=== PATIENT | female | born 1950 | race Caucasian/White ===

== ENCOUNTER 2017-07-03 19:20 | Emergency (ER) | payer MEDICARE ==
[~2017-07-03] VITALS: Ht 154.9 cm; Wt 43.5 kg
[~2017-07-03 19:20] MED LIST: ATROVENT 0.02%2.5 ML INH; FLUCONAZOLE200 MG PO; LEVAQUIN500 MG PO; LEVOTHYROXINE50 MCG PO; NEXIUM40 MG PO; PILOCARPINE HCL PEG; PROTONIX PO; PROVENTIL 0.083%3 ML INH; VICODIN ES TAB1 EACH PEG; XANAX PO; Z PILOCARPINE HCL PEG; Z.0.FLAGYL250 MG PEG; Z.0.LEVAQUIN500 MG PEG; Z.0.PROTONIX40 MG PEG; Z.0.XANAX0.25 MG PEG; Z.0.ZOLOFT50 MG PEG; ZOFRAN ODT4 MG PO; ZOLOFT PO
[2017-07-03 21:07] LABS: BILIRUBIN,URINE NEGATIVE (NEGATIVE); CLARITY,URINE CLEAR (CLEAR); COLOR,URINE YELLOW (YELLOW); KETONES,URINE 1+ (NEGATIVE); LEUKOCYTE ESTERASE ,URINE NEGATIVE (NEGATIVE); NITRITE,URINE NEGATIVE (NEGATIVE); PROTEIN,URINE DIPSTICK NEGATIVE (NEGATIVE); URINE UROBILINOGEN 0.2 mg/dL (0.2 - 1)
[2017-07-03 21:21] LABS: WBC,URINE (MAN) 0-5 /HPF (0-5)
[2017-07-03 21:22] LABS: BACTERIA,URINE FEW /HPF; EPITHELIAL CELLS,URINE FEW /LPF; MUCUS,URINE FEW (RARE)
== END 2017-07-03 21:39 | disposition left against medical advice (07) ==
LOC: ER 19:20
DX: R10.9 Unspecified abdominal pain (principal)
CPT/HCPCS: 81001

== ENCOUNTER 2017-07-20 14:11 | Inpatient (IN) | payer MEDICARE ==
[~2017-07-20] VITALS: Ht 149.9 cm; Wt 47.8 kg
[2017-07-20 16:34] LABS: BASOPHILS % 0.6 % (0.0-1.0); EOSINOPHILS % 0.2 % (0.0-6.0); HEMOGLOBIN 10.1 g/dL (12.0-16.0); LYMPHOCYTES # (AUTO) 0.5 (1.0-3.2); LYMPHOCYTES % 11.3 % (18.0-39.1); MEAN CORPUSCULAR HEMOGLOBIN 28.3 pg (28-32); MEAN CORPUSCULAR HGB CONC 31.6 g/dL (31-35); MEAN CORPUSCULAR VOLUME 89.6 fL (81-99); MONOCYTES # (AUTO) 0.2 (0.2-0.8); MONOCYTES % 4.3 % (4.4-11.3); NEUTROPHILS # (AUTO) 3.9 (2.1-6.9); NEUTROPHILS % 83.2 % (38.7-80.0); PLATELET COUNT 336 x10e3/uL (140-360); RED BLOOD COUNT 3.57 x10e6/uL (3.6-5.1); RED CELL DISTRIBUTION WIDTH 16.8 % (11.7-14.4)
[2017-07-20 16:35] LABS: BILIRUBIN,URINE NEGATIVE (NEGATIVE); COLOR,URINE YELLOW (YELLOW); KETONES,URINE NEGATIVE (NEGATIVE); LEUKOCYTE ESTERASE ,URINE NEGATIVE (NEGATIVE); NITRITE,URINE NEGATIVE (NEGATIVE); PROTEIN,URINE DIPSTICK NEGATIVE (NEGATIVE); URINE UROBILINOGEN 0.2 mg/dL (0.2 - 1)
[2017-07-20 16:41] LABS: INR 0.91; PROTHROMBIN TIME 12.7 seconds (11.9-14.5)
[2017-07-20 16:42] LABS: CLARITY,URINE SL CLOUDY (CLEAR)
[2017-07-20 16:51] LABS: ALANINE AMINOTRANSFERASE 7 IU/L (0-55); ALBUMIN 3.3 g/dL (3.5-5.0); ALBUMIN/GLOBULIN RATIO 0.8 (0.8-2.0); ALKALINE PHOSPHATASE 77 IU/L (40-150); ANION GAP 15.5 mmol/L (8-16); BLOOD UREA NITROGEN 11 mg/dL (7-26); BUN/CREATININE RATIO 18 (6-25); CALCIUM 9.7 mg/dL (8.4-10.2); CARBON DIOXIDE 29 mmol/L (22-29); CHLORIDE 91 mmol/L (98-107); CREATINE KINASE 24 IU/L (29-168); CREATININE, SERUM 0.62 mg/dL (0.57-1.11); EST GLOMERULAR FILTRATION RATE > 60 ML/MIN (60-); GLUCOSE 110 mg/dL (74-118); POTASSIUM 4.5 mmol/L (3.5-5.1); SODIUM 131 mmol/L (136-145)
[2017-07-20 16:56] LABS: BACTERIA,URINE FEW /HPF
[2017-07-20 16:58] LABS: B-TYPE NATRIURETIC PEPTIDE2 26.6 pg/mL (0-100)
--- NOTE | 2017-07-20 18:04 | Diagnostic Imaging Report ---
PROCEDURE: CT ABDOMEN AND PELVIS WITHOUT CONTRAST TECHNIQUE: The abdomen and pelvis were scanned utilizing a multidetector helical scanner from the diaphragm to the lesser trochanter after the oral administration of Redicat. No IV contrast was administered due to history of iodine allergy. Coronal and sagittal multiplanar reformations were obtained. COMPARISON: [facility], CT, CT ABDOMEN/PELVIS WO, 10/16/2013, 0:33. INDICATIONS: ABDOMINAL CANCER, PAIN FINDINGS: ABSENCE OF INTRAVENOUS CONTRAST DECREASES SENSITIVITY FOR DETECTION OF FOCAL LESIONS AND VASCULAR PATHOLOGY. LOWER THORAX: Lung bases are clear. HEPATOBILIARY: Mild contour abnormality/nodularity of the anterior hepatic surface (series 2 image 14). No focal hepatic lesions. No biliary ductal dilatation. Gallbladder is unremarkable. SPLEEN: No splenomegaly. PANCREAS: No focal masses or ductal dilatation. Atrophic pancreas ADRENALS: No adrenal nodules. KIDNEYS/URETERS: No hydronephrosis, stones, or contour abnormalities. Stable 2.0 cm fluid density simple cyst in the mid to inferior posterior left kidney (series 2, image 27). PELVIC ORGANS/BLADDER: Bladder is moderately distended. No wall thickening, or focal lesions. Uterus is not visualized. No adnexal masses. PERITONEUM / RETROPERITONEUM: Interval development of moderate to large amount of ascites. No free air. LYMPH NODES: No lymphadenopathy. VESSELS: Moderate atherosclerotic calcification of the abdominal aorta GI TRACT: Gastrostomy tube in place. No bowel dilation or evidence of obstruction. Moderate amount of retained stool in the colon. Descending and sigmoid colon diverticulosis, without diverticulitis. BONES AND SOFT TISSUES: Generalized osteopenia. No aggressive lytic lesions. Degenerative disc changes, worse at L5-S1, with grade 1-2 anterolisthesis of L5 on S1 secondary to bilateral pars interarticularis defects. IMPRESSION: 1. interval development of moderate to large ascites. 2. Mild contour abnormality/nodularity of the anterior hepatic surface. Given the interval development of ascites, this may represent peritoneal metastatic disease. 3. Moderate amount of retained stool in the colon suggesting constipation. Jeremiah Briggs M.D. Dictated by: Jeremiah Briggs M.D. on 07/20/2017 at 18:13 Electronically approved by: Jeremiah Briggs M.D. on 07/20/2017 at 18:13
[2017-07-20] MEDS ORDERED: ONDANSETRON HCL INJ 2 MG/ML VIAL IV STA (18:56)
[2017-07-20] MEDS: FENTANYL 25 MCG/HR PATCH TOP SCH (18:58)
[2017-07-20] MEDS ORDERED: HYDROMORPHONE 2MG/ML INJ IV ONE (19:00)
[2017-07-20] MEDS: LEVOFLOXACIN 500MG/D5W 100ML 100 ML IV SCH (19:20)
--- NOTE | 2017-07-20 19:27 | Diagnostic Imaging Report ---
EXAMINATION: CHEST SINGLE (PORTABLE) INDICATION: \S\ABD PAIN \S\[id number] \S\184 COMPARISON: None FINDINGS: AP view TUBES and LINES: Right sided chest port with tip overlying the cavoatrial junction LUNGS: Lungs are well inflated. Lungs are clear. Right lower lobe calcified granuloma. There is no evidence of pneumonia or pulmonary edema. PLEURA: No pleural effusion or pneumothorax. HEART AND MEDIASTINUM: The cardiomediastinal silhouette is unremarkable.. BONES AND SOFT TISSUES: No acute osseous lesion. 5 mm metallic density overlying the left upper hemithorax of uncertain location may be external to the patient. UPPER ABDOMEN: No free air under the diaphragm. IMPRESSION: No acute thoracic abnormality. Metallic density overlying the left upper hemithorax may be external to the patient. If no correlation with physical exam, then consider lateral view for better localization. Signed by: Dr. Annamarie Malhotra M.D. on 07/20/2017 7:23 PM
[2017-07-20] MEDS ORDERED: HYDROMORPHONE 1MG/1ML INJ IV PRN (19:30)
--- OUTSIDE RECORDS SUMMARY | 2017-07-20 19:46 | XMS REPORT ---
Author [facility] Address Unknown Phone Unavailable Care Team Providers Care Retirement Actuary Name Role Phone FRANKLIN COLLINS Unavailable Unavailable Problems This patient has no known problems. Allergies, Adverse Reactions, Alerts This patient has no known allergies or adverse reactions. Medications This patient has no known medications. Results Test Description Test Time Test Comments Text Results Atomic Results Result Comments CHEST SINGLE (PORTABLE) [place] [address] Patient Name: ROSALINDA MAO MR #: [id number] : 1950 Age/Sex: 67/F Req #: [id number] Adm Physician: Ordered by: FRANKLIN COLLINS MD Report #: [id number] Location: ER Room/Bed: Procedure: [id number] DX/CHEST SINGLE (PORTABLE) Exam Date: 07/20/17 Exam Time: 1840 REPORT STATUS: Signed EXAMINATION: CHEST SINGLE (PORTABLE) INDICATION: COMPARISON: None FINDINGS: AP view TUBES and LINES: Right sided chest port with tip overlying the cavoatrial junction LUNGS: Lungs are well inflated. Lungs are clear. Right lower lobe calcified granuloma. There is no evidence of pneumonia or pulmonary edema. PLEURA: No pleural effusion or pneumothorax. HEART AND MEDIASTINUM: The cardiomediastinal silhouette is unremarkable.. BONES AND SOFT TISSUES: No acute osseous lesion. 5 mm metallic density overlying the left upper hemithorax of uncertain location may be external to the patient. UPPER ABDOMEN: No free air under the diaphragm. IMPRESSION: No acute thoracic abnormality. Metallic density overlying the left upper hemithorax may be external to the patient. If no correlation with physical exam, then consider lateral view for better localization. Signed by: Dr. Carlito Goodrich M.D. on 07/20/2017 7 :23 PM Dictated By: CARLITO GOODRICH MD 22 Transcribed By: HUMBERTO on 1922 COPY TO: FRANKLIN COLLINS MD CT ABDOMEN/PELVIS WO [place] [address] Patient Name: ROSALINDA MAO MR #: [id number] : 1950 Age/Sex: 67/F Req #: [id number] Adm Physician: Ordered by: FRANKLIN COLLINS MD Report #: [id number] Location: ER Room/Bed: Procedure: [id number] CT/CT ABDOMEN/PELVIS WO Exam Date: 07/20/17 Exam Time: 1715 REPORT STATUS: Signed PROCEDURE: CT ABDOMEN AND PELVIS WITHOUT CONTRAST TECHNIQUE: The abdomen and pelvis were scanned utilizing a multidetector helical scanner from the diaphragm to the lesser trochanter after the oral administration of Redicat. No IV contrast was administered due to history of iodine allergy. Coronal and sagittal multiplanar reformations were obtained. COMPARISON: [facility], CT, CT ABDOMEN/PELVIS WO, 10/16/2013, 0:33. INDICATIONS: ABDOMINAL CANCER, PAIN FINDINGS: ABSENCE OF INTRAVENOUS CONTRAST DECREASES SENSITIVITY FOR DETECTION OF FOCAL LESIONS AND VASCULAR PATHOLOGY. LOWER THORAX: Lung bases are clear. HEPATOBILIARY: Mild contour abnormality/nodularity of the anterior hepatic surface (series 2 image 14). No focal hepatic lesions. No biliary ductal dilatation. Gallbladder is unremarkable. SPLEEN: No splenomegaly. PANCREAS: No focal masses or ductal dilatation. Atrophic pancreas ADRENALS: No adrenal nodules. KIDNEYS/URETERS: No hydronephrosis, stones, or contour abnormalities. Stable 2.0 cm fluid density simple cyst in the mid to inferior posterior left kidney (series 2, image 27). PELVIC ORGANS/ BLADDER: Bladder is moderately distended. No wall thickening, or focal lesions. Uterus is not visualized. No adnexal masses. PERITONEUM / RETROPERITONEUM: Interval development of moderate to large amount of ascites. No free air. LYMPH NODES: No lymphadenopathy. VESSELS: Moderate atherosclerotic calcification of the abdominal aorta GI TRACT: Gastrostomy tube in place. No bowel dilation or evidence of obstruction. Moderate amount of retained stool in the colon. Descending and sigmoid colon diverticulosis, without diverticulitis. BONES AND SOFT TISSUES: Generalized osteopenia. No aggressive lytic lesions. Degenerative disc changes, worse at L5-S1, with grade 1-2 anterolisthesis of L5 on S1 secondary to bilateral pars interarticularis defects. IMPRESSION: 1. interval development of moderate to large ascites. 2. Mild contour abnormality/nodularity of the anterior hepatic surface. Given the interval development of ascites, this may represent peritoneal metastatic disease. 3. Moderate amount of retained stool in the colon suggesting constipation. Lucila Briggs M.D. Dictated by: Lucila Briggs M.D. on at 18:13 Electronically approved by: Lucila Briggs M.D. on 07/20/2017 at 18:13 Dictated By: LUCILA BRIGGS MD 12 Transcribed By: KATE on 07/20/171812 COPY TO: FRANKLIN COLLINS MD
[2017-07-20] MEDS: SODIUM CHLORIDE 0.9% 1000ML 1,000 ML IV SCH (20:24)
[2017-07-20] MEDS: METRONIDAZOLE 500MG/NS 100ML 100 ML IV SCH (20:24)
[2017-07-20 21:45] VITALS: BP 162/71
[2017-07-20] MEDS ORDERED: IPRATROPIU0.2 MG/1 M NEB (23:55)
[2017-07-20] MEDS ORDERED: PROPRANOLOL HCL10 MG PEG (23:55)
[2017-07-20] MEDS ORDERED: VENTOLIN HFA18 GM INH (23:55)
[2017-07-20] MEDS ORDERED: ALPRAZOLAM0.5 MG PEG (23:55)
[2017-07-20] MEDS ORDERED: LEVOTHYROXINE50 MCG PEG (23:55)
[2017-07-20] MEDS ORDERED: PROMETHAZINE HC25 M1 PEG (23:55)
[2017-07-20] MEDS ORDERED: CARAFATE1 GM/10 ML PEG (23:55)
[2017-07-20] MEDS ORDERED: OXCARBAZEPINE300 MG PEG (23:55)
[2017-07-20] MEDS ORDERED: TRAZODONE HCL50 MG PEG (23:55)
[2017-07-20] MEDS ORDERED: MIRTAZAPINE15 MG PEG (23:55)
[2017-07-20] MEDS ORDERED: OXYCODONE HCL20 M1 PEG (23:55)
[2017-07-21] VITALS (7 sets, daily range): BP systolic 107–134; BP diastolic 58–82
[2017-07-21] MEDS: OXCARBAZEPINE 300 MG TAB PEG SCH ×3 (00:14→18:24)
[2017-07-21] MEDS: TRAZODONE HCL 50 MG TAB PEG SCH ×2 (00:14→21:42)
[2017-07-21] MEDS: MIRTAZAPINE 15 MG TAB PEG SCH ×2 (00:14→21:42)
[2017-07-21] MEDS: HYDROMORPHONE 2MG/ML INJ IV PRN ×4 (00:22→20:01)
[2017-07-21 00:50] LABS: CREATINE KINASE 20 IU/L (29-168)
[2017-07-21] MEDS: ALBUTEROL SULFATE HFA 8GM INHALATION AEROSOL INH SCH ×6 (02:00→22:00)
[2017-07-21] MEDS: METRONIDAZOLE 500MG/NS 100ML 100 ML IV SCH ×4 (03:00→21:42)
[2017-07-21] MEDS: LEVOTHYROXINE SODIUM 50 MCG TAB PEG SCH ×2 (05:51→09:00)
[2017-07-21 07:13] LABS: BASOPHILS % 0.8 % (0.0-1.0); EOSINOPHILS % 1.1 % (0.0-6.0); HEMATOCRIT 27.6 % (34.2-44.1); HEMOGLOBIN 8.6 g/dL (12.0-16.0); LYMPHOCYTES # (AUTO) 0.5 (1.0-3.2); LYMPHOCYTES % 19.2 % (18.0-39.1); MEAN CORPUSCULAR HEMOGLOBIN 28.3 pg (28-32); MEAN CORPUSCULAR HGB CONC 31.2 g/dL (31-35); MEAN CORPUSCULAR VOLUME 90.8 fL (81-99); MONOCYTES # (AUTO) 0.2 (0.2-0.8); MONOCYTES % 7.7 % (4.4-11.3); NEUTROPHILS # (AUTO) 1.8 (2.1-6.9); NEUTROPHILS % 70.4 % (38.7-80.0); PLATELET COUNT 295 x10e3/uL (140-360); RED BLOOD COUNT 3.04 x10e6/uL (3.6-5.1)
[2017-07-21 07:42] LABS: ALBUMIN 2.7 g/dL (3.5-5.0); ALBUMIN/GLOBULIN RATIO 0.8 (0.8-2.0); ALKALINE PHOSPHATASE 63 IU/L (40-150); ANION GAP 10.9 mmol/L (8-16); BLOOD UREA NITROGEN 9 mg/dL (7-26); BUN/CREATININE RATIO 16 (6-25); CALCIUM 8.9 mg/dL (8.4-10.2); CARBON DIOXIDE 29 mmol/L (22-29); CHLORIDE 98 mmol/L (98-107); CREATININE, SERUM 0.55 mg/dL (0.57-1.11); EST GLOMERULAR FILTRATION RATE > 60 ML/MIN (60-); GLUCOSE 86 mg/dL (74-118); POTASSIUM 3.9 mmol/L (3.5-5.1); SODIUM 134 mmol/L (136-145)
[2017-07-21] MEDS: IPRATROPIUM BROMIDE 0.02% 2.5 ML NEB NEB SCH ×4 (07:55→23:05)
[2017-07-21 08:18] LABS: ALANINE AMINOTRANSFERASE < 6 IU/L (0-55)
[2017-07-21] MEDS: SODIUM CHLORIDE 0.9% 1000ML 1,000 ML IV SCH ×2 (08:50→19:00)
[2017-07-21 12:30] LABS: CREATINE KINASE 18 IU/L (29-168)
[2017-07-21 12:52] LABS: BODY FLUID COLOR STRAW; BODY FLUID TYPE PERITONEAL
[2017-07-21 13:42] LABS: RBC,BODY FLUID 344 cells/uL
[2017-07-21 13:54] LABS: WBC,BODY FLUID 1 cells/uL
[2017-07-21 13:57] LABS: BODY FLUID APPEARANCE CLOUDY
[2017-07-21] MEDS: ONDANSETRON HCL INJ 2 MG/ML VIAL IV PRN (16:06)
[2017-07-21] MEDS: ALBUTEROL SULF 0.083% NEB SOLN 3 ML NEB INH PRN (19:25)
[2017-07-21] MEDS: LEVOFLOXACIN 500MG/D5W 100ML 100 ML IV SCH (20:01)
[2017-07-21] MEDS ORDERED: ALPRAZOLAM 0.5 MG TAB PEG PRN (20:30)
[2017-07-21] MEDS ORDERED: OXYCODONE HCL 20 MG TAB CR PO PRN (20:30)
[2017-07-21] MEDS: SUCRALFATE 1 GM/10 ML SUSP PEG SCH (21:42)
[2017-07-22] VITALS (7 sets, daily range): BP systolic 122–138; BP diastolic 57–69
[2017-07-22] MEDS: HYDROMORPHONE 2MG/ML INJ IV PRN ×6 (00:35→21:45)
[2017-07-22] MEDS: ALBUTEROL SULFATE HFA 8GM INHALATION AEROSOL INH SCH ×6 (02:35→22:00)
[2017-07-22] MEDS: METRONIDAZOLE 500MG/NS 100ML 100 ML IV SCH ×4 (03:19→21:30)
[2017-07-22] MEDS: ALBUTEROL SULF 0.083% NEB SOLN 3 ML NEB INH PRN ×3 (06:55→19:30)
[2017-07-22] MEDS: IPRATROPIUM BROMIDE 0.02% 2.5 ML NEB NEB SCH ×3 (06:55→19:30)
[2017-07-22] MEDS: LEVOTHYROXINE SODIUM 50 MCG TAB PEG SCH (09:00)
[2017-07-22] MEDS: SUCRALFATE 1 GM/10 ML SUSP PEG SCH ×4 (09:25→21:30)
[2017-07-22] MEDS: OXCARBAZEPINE 300 MG TAB PEG SCH ×2 (09:25→16:52)
[2017-07-22] MEDS: PROPRANOLOL HCL 10 MG TAB PEG SCH ×2 (09:25→16:52)
[2017-07-22 11:36] LABS: BASOPHILS % 0.3 % (0.0-1.0); EOSINOPHILS % 0.6 % (0.0-6.0); LYMPHOCYTES # (AUTO) 0.4 (1.0-3.2); LYMPHOCYTES % 10.3 % (18.0-39.1); MEAN CORPUSCULAR HEMOGLOBIN 28.6 pg (28-32); MEAN CORPUSCULAR HGB CONC 31.6 g/dL (31-35); MEAN CORPUSCULAR VOLUME 90.6 fL (81-99); MONOCYTES # (AUTO) 0.2 (0.2-0.8); MONOCYTES % 6.6 % (4.4-11.3); NEUTROPHILS # (AUTO) 2.9 (2.1-6.9); NEUTROPHILS % 81.9 % (38.7-80.0); PLATELET COUNT 284 x10e3/uL (140-360); RED BLOOD COUNT 2.76 x10e6/uL (3.6-5.1)
[2017-07-22 11:43] LABS: HEMOGLOBIN 7.9 g/dL (12.0-16.0)
[2017-07-22 12:00] LABS: BLOOD UREA NITROGEN 11 mg/dL (7-26); BUN/CREATININE RATIO 22 (6-25); CALCIUM 8.4 mg/dL (8.4-10.2); CARBON DIOXIDE 26 mmol/L (22-29); CHLORIDE 99 mmol/L (98-107); CREATININE, SERUM 0.51 mg/dL (0.57-1.11); EST GLOMERULAR FILTRATION RATE > 60 ML/MIN (60-); GLUCOSE 120 mg/dL (74-118); MAGNESIUM 1.4 MG/DL (1.3-2.1); PHOSPHORUS 3.1 MG/DL (2.3-4.7); SODIUM 133 mmol/L (136-145)
[2017-07-22] MEDS: SODIUM CHLORIDE 0.9% 1000ML 1,000 ML IV SCH (12:09)
[2017-07-22] MEDS ORDERED: MAGNESIUM SULFATE 2GM/50ML 50 ML IV ONE (14:00)
[2017-07-22 15:50] LABS: BASOPHILS % 0.5 % (0.0-1.0); EOSINOPHILS % 0.8 % (0.0-6.0); HEMATOCRIT 29.2 % (34.2-44.1); HEMOGLOBIN 9.1 g/dL (12.0-16.0); LYMPHOCYTES # (AUTO) 0.6 (1.0-3.2); LYMPHOCYTES % 14.3 % (18.0-39.1); MEAN CORPUSCULAR HEMOGLOBIN 28.5 pg (28-32); MEAN CORPUSCULAR HGB CONC 31.2 g/dL (31-35); MEAN CORPUSCULAR VOLUME 91.5 fL (81-99); MONOCYTES # (AUTO) 0.2 (0.2-0.8); MONOCYTES % 5.7 % (4.4-11.3); NEUTROPHILS % 78.4 % (38.7-80.0); PLATELET COUNT 313 x10e3/uL (140-360); RED BLOOD COUNT 3.19 x10e6/uL (3.6-5.1); RED CELL DISTRIBUTION WIDTH 16.8 % (11.7-14.4)
[2017-07-22 15:58] LABS: INR 1.18; PROTHROMBIN TIME 14.1 seconds (11.9-14.5)
[2017-07-22 16:08] LABS: ALBUMIN 2.7 g/dL (3.5-5.0); ALBUMIN/GLOBULIN RATIO 0.8 (0.8-2.0); ALKALINE PHOSPHATASE 57 IU/L (40-150); BLOOD UREA NITROGEN 10 mg/dL (7-26); BUN/CREATININE RATIO 20 (6-25); CALCIUM 8.8 mg/dL (8.4-10.2); CARBON DIOXIDE 25 mmol/L (22-29); CHLORIDE 98 mmol/L (98-107); EST GLOMERULAR FILTRATION RATE > 60 ML/MIN (60-); GLUCOSE 105 mg/dL (74-118); SODIUM 132 mmol/L (136-145)
[2017-07-22 16:09] LABS: ALANINE AMINOTRANSFERASE < 6 IU/L (0-55)
[2017-07-22] MEDS: MAGNESIUM OXIDE 400 MG TAB PO SCH (16:52)
[2017-07-22] MEDS: OXYCODONE HCL IR 5 MG TAB PEG PRN (16:54)
--- NOTE | 2017-07-22 18:29 | History and Physical ---
DATE OF SERVICE: July 21, 2017 HISTORY OF PRESENT ILLNESS: The patient is a 67-year-old female that presented to the emergency department yesterday with complaints of fluid in the stomach that was causing shortness of breath, stating that she needed a paracentesis. The patient had recently been at [facility] 2 weeks ago with similar problems. Per the emergency room record, the patient described her abdominal pain as dull with distension. At that time, her pain level was 8/10. She denied any vomiting or diarrhea. She has had nausea and loss of appetite. Earlier today, the patient underwent a paracentesis in which 2450 mL of fluid was removed, and oncology has been consulted to see the patient. PRIMARY CARE PHYSICIAN: Dr. Thom Moore PAST MEDICAL HISTORY: Includes ovarian cancer, cervical cancer, head cancer, throat cancer, neck cancer, tonsil cancer. The head and neck cancer was in 2010 and the patient had chemo and radiation. At that time, lung and kidneys lesions were noted. She has a history of hypoxemic respiratory failure with intubation, pneumonia, COPD, chronic back pain, osteoarthritis, methadone use, anxiety, hypothyroidism, diverticulitis, diverticulosis. In 2015, she had chemotherapy for ovarian cancer. PAST SURGICAL HISTORY: Paracentesis in June in which 4.5 liters were removed. PEG placement, tubal ligation, history of 3 Csec-O-Qifcu, total abdominal hysterectomy and bilateral salpingo-oophorectomy. PAST FAMILY HISTORY: Mother and father both had hypertension. Her sisters have had hysterectomies. SOCIAL HISTORY: Patient denies any history of alcohol or drugs. She is a lifelong smoker. Currently smoking approximately 1/4 per pack a day. ALLERGIES: TETRACYCLINE, IBUPROFEN, IODINE, PENICILLINS, NSAIDs. HOME MEDICATIONS: Include: 1. Albuterol nebs 3 mL inhalation every 4 hours. 2. Albuterol 18 g HFA, 90 mcg inhalation q.4h. 3. Alprazolam 0.5 mg tablet via PEG t.i.d. p.r.n. for anxiety. 4. Nexium 40 mg p.o. daily. 5. Atrovent 2.5 mL neb q.i.d. 6. Levothyroxine 50 mcg tablet via PEG daily. 7. Mirtazapine 15 mg tablet via PEG nightly. 8. Oxcarbazepine 300 mg tablet via PEG b.i.d. 9. Oxycodone 20 mg tablet, 10 mg via PEG every 6 hours p.r.n. for pain. 10. Promethazine 25 mg tablet via PEG every 6 hours p.r.n. for nausea and vomiting. 11. Propranolol 10 mg tablet via PEG b.i.d. 12. Sucralfate 1 g via PEG q.i.d. 13. Trazodone 50 mg via PEG nightly. REVIEW OF SYSTEMS: GENERAL: The patient denies any chills. She currently does not have any pain. She states she has some headache, which she attributes to her oxygen being dry. She has weakness. Denies fatigue or malaise. HEENT: Denies any visual complaints. Complains of dry nose. CARDIOVASCULAR: Denies chest pain or palpitations or syncope. PULMONARY: She has shortness of breath with dyspnea on exertion as well as cough and clear phlegm. She denies use of oxygen at home. GASTROINTESTINAL: Patient denies nausea, vomiting, diarrhea, constipation, or melena or hematemesis. GENITOURINARY: No complaints of dysuria or pyuria. No urinary frequency. MUSCULOSKELETAL: Patient complains of weakness, but has a history of chronic back pain. ENDOCRINE: Negative for diabetes. HEMATOLOGY: Denies history of bleeding or bruising. INFECTIOUS DISEASE: No known history of HIV or immunodeficiency per the patient, although has an extensive history of cancer. NEUROLOGIC: Denies any focal weakness, numbness, tingling, or seizures. PHYSICAL EXAMINATION: VITAL SIGNS: Temperature 97.4, heart rate 89, blood pressure 133/82, respirations 20, oxygen saturation 97%. Height 4 feet 11 inches. Weight 105 pounds. BMI 21.2. GENERAL: Patient is cachectic, emaciated, supine, in no acute distress. HEENT: Pupils are equal, round, and reactive to light. Extraocular eye movements intact. Oropharynx is clear. Atraumatic, normocephalic. NECK: Supple. No lymphadenopathy, thyromegaly. No obvious JVD. No carotid bruit. CARDIOVASCULAR: Regular rate and rhythm. No murmur. LUNGS: Air entry bilaterally. No wheezing, crackles, or rhonchi noted, but she has diminished in the bases. Currently using oxygen at 2 liters via nasal cannula. Prolonged expiration. ABDOMEN: Bowel sounds positive. Soft, nontender. She has a PEG. Currently has Jevity infusing into the PEG. No hepatosplenomegaly noted. BACK: No costovertebral angle tenderness. EXTREMITIES: No discoloration of the legs noted. No signs or symptoms of DVT or pitting edema. NEUROLOGICAL: GCS of 15, nonfocal. Cranial nerves II through XII are intact. Alert and oriented x4. LABORATORY DATA: Yesterday, WBC is 4.69, hemoglobin 10.1, hematocrit 32.0, platelets 336,000. PT 12.7, INR 0.91, PTT 36. Chemistry: Sodium 131, potassium 4.5, chloride 91, CO2 29, BUN 11, creatinine 0.62, GFR greater than 60, glucose 110. Lactic acid 12.6. Calcium 9.7. Total bilirubin 0.4, AST 16, ALT 7, alkaline phosphatase 77. Creatinine kinase 24. CK-MB 0.80. Troponin I less than 0.001. B-type natriuretic peptide 26.6. Total protein 7.7, albumin 3.3. Urinalysis showed yellow urine, which was negative for leukocyte esterases, urine protein or nitrites. Today, WBC is 2.61, hemoglobin 8.6, hematocrit 27.6, platelets 295,000. Sodium 134, potassium 3.9, chloride 98, CO2 29, BUN 9, creatinine 0.55, GFR greater than 60, glucose 86, calcium 8.9. Total bilirubin 0.3. AST 12, ALT less than 6, alkaline phosphatase 63, total protein 6.2, albumin 2.7. Creatinine kinase 18. CK-MB 0.7. Troponin I less than 0.001. Today, the peritoneal fluid from the paracentesis was sent to lab, straw-colored cloudy, WBC 1, RBC 344, total protein 4.8. Other labs from this are pending. Yesterday, the patient had 2 blood cultures, which have shown no growth after 24 hours. Urine culture has shown no growth after 18 to 24 hours. Gram stain with culture and sensitivity of the peritoneal fluid is pending. Yesterday, an abdomen and pelvis CT was completed, which showed moderate to large ascites, mild contour abnormality, nodularity of the anterior hepatic surface. Given the interval development of ascites, this may represent peritoneal metastatic disease. Moderate amount of retained stool in the colon suggesting constipation. Chest x-ray obtained yesterday showed no acute thoracic abnormality. Twelve-lead EKG completed yesterday showed normal sinus rhythm with a ventricular rate of 79. ASSESSMENT AND PLAN: 1. Ascites secondary to malignancy with history of ovarian cancer in 2016, status post ultrasound-guided paracentesis, July 21, 2017 with 2450 mL of fluid removed. Oncology has been consulted. 2. Abdominal pain. Continue fentanyl patch and Dilaudid. The patient is on Levaquin and Flagyl intravenously. Continue to monitor. 3. Hypoxia/dyspnea on exertion, complicated by ascites. Continue oxygen via nasal cannula. Will ask that oxygen be humidified. 4. Chronic obstructive pulmonary disease, current smoker. DuoNeb, supplemental oxygen, encouraged smoking cessation. 5. Degenerative disk disease, osteopenia, chronic back pain. Pain control as above. 6. History of ovarian, cervical, head, neck, throat, tonsil cancer; and a lifelong smoker. Continue supportive care. Oncology has been consulted. 7. Diverticulosis. Monitor. 8. Cachexia, protein-calorie malnutrition, percutaneous endoscopic gastrostomy status. Continue Remeron as an appetite stimulant. Patient is also receiving tube feeds in the form of Jevity. 9. Patient will receive Protonix for peptic ulcer disease prophylaxis and sequential compression devices for deep venous thrombosis prophylaxis. Dictated by EILEEN Fairbanks Job#: [id number]
[2017-07-22] MEDS: LEVOFLOXACIN 500MG/D5W 100ML 100 ML IV SCH (20:00)
[2017-07-22] MEDS: MIRTAZAPINE 15 MG TAB PEG SCH (21:30)
[2017-07-22] MEDS: TRAZODONE HCL 50 MG TAB PEG SCH (21:30)
[2017-07-23] VITALS: BP 108/59
[2017-07-23] MEDS: ALBUTEROL SULF 0.083% NEB SOLN 3 ML NEB INH PRN ×2 (00:30→20:30)
[2017-07-23] MEDS: IPRATROPIUM BROMIDE 0.02% 2.5 ML NEB NEB SCH ×5 (00:30→21:00)
[2017-07-23] MEDS: ALBUTEROL SULFATE HFA 8GM INHALATION AEROSOL INH SCH ×6 (02:00→22:00)
[2017-07-23] MEDS: HYDROMORPHONE 2MG/ML INJ IV PRN ×5 (02:06→22:07)
[2017-07-23] MEDS: METRONIDAZOLE 500MG/NS 100ML 100 ML IV SCH ×4 (03:22→22:07)
[2017-07-23 04:00] VITALS: BP 119/62
[2017-07-23 06:12] LABS: BASOPHILS % 0.8 % (0.0-1.0); EOSINOPHILS # (AUTO) 0.1 (0.0-0.4); EOSINOPHILS % 2.1 % (0.0-6.0); LYMPHOCYTES # (AUTO) 0.6 (1.0-3.2); LYMPHOCYTES % 26.3 % (18.0-39.1); MEAN CORPUSCULAR HEMOGLOBIN 28.3 pg (28-32); MEAN CORPUSCULAR HGB CONC 30.8 g/dL (31-35); MEAN CORPUSCULAR VOLUME 91.9 fL (81-99); MONOCYTES # (AUTO) 0.2 (0.2-0.8); MONOCYTES % 9.9 % (4.4-11.3); NEUTROPHILS # (AUTO) 1.5 (2.1-6.9); NEUTROPHILS % 60.9 % (38.7-80.0); PLATELET COUNT 263 x10e3/uL (140-360); RED BLOOD COUNT 2.72 x10e6/uL (3.6-5.1); RED CELL DISTRIBUTION WIDTH 16.8 % (11.7-14.4)
[2017-07-23 06:20] LABS: INR 1.35; PROTHROMBIN TIME 15.7 seconds (11.9-14.5)
[2017-07-23 06:21] LABS: PARTIAL THROMBOPLASTIN TIME 40.5 seconds (23.8-35.5)
[2017-07-23 06:28] LABS: ALBUMIN 2.1 g/dL (3.5-5.0); ALBUMIN/GLOBULIN RATIO 0.8 (0.8-2.0); ALKALINE PHOSPHATASE 46 IU/L (40-150); ANION GAP 10.3 mmol/L (8-16); BLOOD UREA NITROGEN 10 mg/dL (7-26); BUN/CREATININE RATIO 19 (6-25); CALCIUM 8.4 mg/dL (8.4-10.2); CARBON DIOXIDE 28 mmol/L (22-29); CHLORIDE 99 mmol/L (98-107); CREATININE, SERUM 0.53 mg/dL (0.57-1.11); EST GLOMERULAR FILTRATION RATE > 60 ML/MIN (60-); GLUCOSE 113 mg/dL (74-118); POTASSIUM 4.3 mmol/L (3.5-5.1); SODIUM 133 mmol/L (136-145)
[2017-07-23 06:29] LABS: HEMOGLOBIN 7.7 g/dL (12.0-16.0)
[2017-07-23] MEDS: LEVOTHYROXINE SODIUM 50 MCG TAB PEG SCH (06:38)
[2017-07-23] MEDS: SODIUM CHLORIDE 0.9% 1000ML 1,000 ML IV SCH ×2 (06:38→14:10)
[2017-07-23 06:39] LABS: ALANINE AMINOTRANSFERASE < 6 IU/L (0-55)
[2017-07-23 07:52] LABS: HEMATOCRIT 27.1 % (34.2-44.1); HEMOGLOBIN 8.3 g/dL (12.0-16.0)
[2017-07-23 08:00] VITALS: BP 137/63
[2017-07-23] MEDS: SUCRALFATE 1 GM/10 ML SUSP PEG SCH ×4 (10:06→21:28)
[2017-07-23] MEDS: PROPRANOLOL HCL 10 MG TAB PEG SCH ×2 (10:06→18:44)
[2017-07-23] MEDS: MAGNESIUM OXIDE 400 MG TAB PO SCH ×2 (10:15→18:29)
[2017-07-23] MEDS: OXCARBAZEPINE 300 MG TAB PEG SCH ×2 (10:15→18:29)
[2017-07-23] MEDS ORDERED: DIPHENHYDRAMINE HCL INJ 50 MG/ML VIAL IV ONE (10:45)
[2017-07-23] MEDS: ONDANSETRON HCL INJ 2 MG/ML VIAL IV PRN ×2 (11:11→15:51)
[2017-07-23 12:00] VITALS: BP 131/63
[2017-07-23] MEDS: OXYCODONE HCL IR 5 MG TAB PEG PRN ×2 (13:06→19:54)
[2017-07-23 16:00] VITALS: BP 110/55
[2017-07-23] MEDS ORDERED: SODIUM CHLORIDE 0.9% 250ML 250 ML IV ONE (16:30)
[2017-07-23] MEDS ORDERED: DIPHENHYDRAMINE HCL INJ 50 MG/ML VIAL IV NR (18:00)
[2017-07-23] MEDS: FENTANYL 25 MCG/HR PATCH TOP SCH (18:17)
--- NOTE | 2017-07-23 19:29 | Consultation ---
DATE OF CONSULTATION: PULMONARY CONSULTATION A charming but unfortunate 67-year-old woman with history of multiple carcinomas. 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 The patient continues to smoke less than 1/2 pack of cigarettes a day. She has had recent paracentesis at [facility]. The results of those fluid analysis unknown at this time. ALLERGIES: TETRACYCLINE, MOTRIN, IODINE, PENICILLIN. 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 HOME MEDICATIONS: Albuterol, Xanax, Nexium, ipratropium, Levoxyl, Remeron, oxcarbazepine, Oxycodone, Phenergan, propranolol, Carafate and trazodone. She takes all medications via her feeding tube. She requests full measures at this time. She does have a dry mouth and is unable to tolerate Biotene. PHYSICAL EXAMINATION GENERAL: A sprightly white female unable to eat except for pureed diet in small amounts. Most of her feedings are by PEG tube. She has a Nicorette inhaler which she uses. She is frail. VITAL SIGNS: Temperature 98.2, pulse 74, respirations 16, blood pressure 131/61. CHEST: Port-A-Cath noted chest wall. LUNGS: Diminished breath sounds but clear. HEART: Regular rhythm. ABDOMEN: Soft. There is a PEG tube in place. She had a paracentesis earlier today. PLAN: Continue bronchodilators. Transfusion has been ordered for the patient. Her hemoglobin has fallen to 7.9, apparently reported by . Thank you for this kind referral. Job#: [id number]
[2017-07-23 20:00] VITALS: BP 169/79
[2017-07-23] MEDS: TRAZODONE HCL 50 MG TAB PEG SCH (21:00)
[2017-07-23] MEDS: MIRTAZAPINE 15 MG TAB PEG SCH (21:27)
[2017-07-23] MEDS ORDERED: HYDROMORPHONE 1MG/1ML INJ IV PRN (21:30)
[2017-07-24] VITALS: BP 166/68
[2017-07-24 00:53] VITALS: BP 166/68
[2017-07-24] MEDS: LEVOFLOXACIN 500MG/D5W 100ML 100 ML IV SCH ×2 (00:54→19:55)
[2017-07-24] MEDS: ALBUTEROL SULFATE HFA 8GM INHALATION AEROSOL INH SCH ×5 (02:00→22:00)
[2017-07-24] MEDS: HYDROMORPHONE 2MG/ML INJ IV PRN ×5 (02:05→20:35)
[2017-07-24] MEDS: SODIUM CHLORIDE 0.9% 1000ML 1,000 ML IV SCH ×2 (03:36→16:52)
[2017-07-24] MEDS: METRONIDAZOLE 500MG/NS 100ML 100 ML IV SCH ×4 (03:36→20:34)
[2017-07-24] MEDS: OXYCODONE HCL IR 5 MG TAB PEG PRN (03:37)
[2017-07-24 04:00] VITALS: BP 158/68
[2017-07-24] MEDS: LEVOTHYROXINE SODIUM 50 MCG TAB PEG SCH (05:39)
[2017-07-24] MEDS: IPRATROPIUM BROMIDE 0.02% 2.5 ML NEB NEB SCH ×4 (07:00→23:45)
[2017-07-24] MEDS: ALBUTEROL SULF 0.083% NEB SOLN 3 ML NEB INH PRN ×4 (07:00→23:45)
[2017-07-24 07:50] VITALS: BP 141/67
[2017-07-24 08:20] LABS: BASOPHILS % 0.7 % (0.0-1.0); EOSINOPHILS # (AUTO) 0.1 (0.0-0.4); EOSINOPHILS % 2.5 % (0.0-6.0); HEMATOCRIT 33.4 % (34.2-44.1); HEMOGLOBIN 10.6 g/dL (12.0-16.0); LYMPHOCYTES # (AUTO) 0.7 (1.0-3.2); LYMPHOCYTES % 22.8 % (18.0-39.1); MEAN CORPUSCULAR HEMOGLOBIN 28.3 pg (28-32); MEAN CORPUSCULAR HGB CONC 31.7 g/dL (31-35); MEAN CORPUSCULAR VOLUME 89.3 fL (81-99); MONOCYTES # (AUTO) 0.3 (0.2-0.8); MONOCYTES % 8.8 % (4.4-11.3); NEUTROPHILS # (AUTO) 1.9 (2.1-6.9); NEUTROPHILS % 64.8 % (38.7-80.0); PLATELET COUNT 290 x10e3/uL (140-360); RED BLOOD COUNT 3.74 x10e6/uL (3.6-5.1)
[2017-07-24] MEDS: MAGNESIUM OXIDE 400 MG TAB PO SCH ×2 (09:20→17:22)
[2017-07-24] MEDS: OXCARBAZEPINE 300 MG TAB PEG SCH ×2 (09:20→17:21)
[2017-07-24] MEDS: PROPRANOLOL HCL 10 MG TAB PEG SCH ×2 (09:21→17:21)
[2017-07-24] MEDS: SUCRALFATE 1 GM/10 ML SUSP PEG SCH ×4 (09:21→20:34)
[2017-07-24] MEDS: ONDANSETRON HCL INJ 2 MG/ML VIAL IV PRN ×2 (15:28→20:35)
[2017-07-24 15:56] VITALS: BP 180/75
[2017-07-24 20:00] VITALS: BP 158/71
[2017-07-24] MEDS: MIRTAZAPINE 15 MG TAB PEG SCH (20:34)
[2017-07-24] MEDS: TRAZODONE HCL 50 MG TAB PEG SCH (20:35)
[2017-07-25] VITALS: BP 177/84
[2017-07-25] MEDS: PROMETHAZINE HCL 25 MG TAB PEG PRN ×2 (00:16→00:49)
[2017-07-25 01:04] VITALS: BP 177/84
[2017-07-25] MEDS: ONDANSETRON HCL INJ 2 MG/ML VIAL IV PRN (01:30)
[2017-07-25] MEDS: HYDROMORPHONE 2MG/ML INJ IV PRN (01:48)
[2017-07-25] MEDS: ALBUTEROL SULFATE HFA 8GM INHALATION AEROSOL INH SCH ×2 (02:00→07:32)
[2017-07-25] MEDS: METRONIDAZOLE 500MG/NS 100ML 100 ML IV SCH ×2 (03:33→08:23)
[2017-07-25 04:00] VITALS: BP 138/68
[2017-07-25] MEDS: LEVOTHYROXINE SODIUM 50 MCG TAB PEG SCH (05:20)
[2017-07-25] MEDS: SODIUM CHLORIDE 0.9% 1000ML 1,000 ML IV SCH (05:20)
[2017-07-25 06:35] LABS: BASOPHILS % 0.6 % (0.0-1.0); EOSINOPHILS % 0.3 % (0.0-6.0); HEMATOCRIT 30.2 % (34.2-44.1); HEMOGLOBIN 9.8 g/dL (12.0-16.0); LYMPHOCYTES # (AUTO) 0.5 (1.0-3.2); MEAN CORPUSCULAR HEMOGLOBIN 28.3 pg (28-32); MEAN CORPUSCULAR HGB CONC 32.5 g/dL (31-35); MEAN CORPUSCULAR VOLUME 87.3 fL (81-99); MONOCYTES # (AUTO) 0.2 (0.2-0.8); MONOCYTES % 5.6 % (4.4-11.3); NEUTROPHILS # (AUTO) 2.6 (2.1-6.9); NEUTROPHILS % 77.6 % (38.7-80.0); PLATELET COUNT 271 x10e3/uL (140-360); RED BLOOD COUNT 3.46 x10e6/uL (3.6-5.1); RED CELL DISTRIBUTION WIDTH 16.5 % (11.7-14.4)
[2017-07-25 06:54] LABS: ANION GAP 12.7 mmol/L (8-16); BLOOD UREA NITROGEN 8 mg/dL (7-26); BUN/CREATININE RATIO 16 (6-25); CALCIUM 8.7 mg/dL (8.4-10.2); CARBON DIOXIDE 26 mmol/L (22-29); CHLORIDE 95 mmol/L (98-107); CREATININE, SERUM 0.51 mg/dL (0.57-1.11); EST GLOMERULAR FILTRATION RATE > 60 ML/MIN (60-); GLUCOSE 90 mg/dL (74-118); MAGNESIUM 1.4 MG/DL (1.3-2.1); POTASSIUM 3.7 mmol/L (3.5-5.1); SODIUM 130 mmol/L (136-145)
[2017-07-25] MEDS: ALBUTEROL SULF 0.083% NEB SOLN 3 ML NEB INH PRN (07:32)
[2017-07-25] MEDS: IPRATROPIUM BROMIDE 0.02% 2.5 ML NEB NEB SCH ×2 (07:32→11:26)
[2017-07-25 08:00] VITALS: BP 126/60
[2017-07-25 08:21] VITALS: BP 126/60
[2017-07-25] MEDS: MAGNESIUM OXIDE 400 MG TAB PO SCH (08:23)
[2017-07-25] MEDS: SUCRALFATE 1 GM/10 ML SUSP PEG SCH (08:23)
[2017-07-25] MEDS: OXCARBAZEPINE 300 MG TAB PEG SCH (08:23)
[2017-07-25] MEDS: PROPRANOLOL HCL 10 MG TAB PEG SCH (08:23)
[2017-07-25] MEDS ORDERED: SPIRONOLACTONE 25 MG TAB PO SCH (09:00)
[2017-07-25] MEDS ORDERED: FUROSEMIDE 20 MG TAB PO SCH (09:00)
[2017-07-25] MEDS ORDERED: POTASSIUM CHLORIDE 10 MEQ TABCR PO SCH (09:00)
[2017-07-25] MEDS ORDERED: HYDROMORPHONE 1MG/1ML INJ IV PRN (09:15)
[2017-07-25] MEDS ORDERED: FUROSEMIDE20 MG PO (09:26)
[2017-07-25] MEDS ORDERED: K DUR10 MEQ PO (09:26)
[2017-07-25] MEDS ORDERED: MAGNESIUM OXID400 MG PO (09:26)
[2017-07-25] MEDS ORDERED: ALDACTONE25 MG PO (09:26)
[2017-07-25] MEDS ORDERED: SODIUM CHLORIDE 1 GM TAB PO SCH (09:30)
--- NOTE | 2017-07-25 19:31 | Discharge Summary ---
ADMISSION DIAGNOSES 1. Ascites secondary to malignancy with history of ovarian cancer in 2016. 2. Abdominal pain. 3. Hypoxia. 4. Dyspnea on exertion. 5. Chronic obstructive pulmonary disease. 6. Current smoker. 7. Osteopenia. 8. Chronic back pain. 9. Degenerative disk disease. 10. Cachexia. 11. Diverticulosis. 12. History of ovarian, cervical, head and neck, throat, tonsil cancer. DISCHARGE DIAGNOSES 1. Ascites secondary to malignancy with history of ovarian cancer in 2016. 2. Abdominal pain. 3. Hypoxia. 4. Dyspnea on exertion. 5. Chronic obstructive pulmonary disease. 6. Current smoker. 7. Osteopenia. 8. Chronic back pain. 9. Degenerative disk disease. 10. Cachexia. 11. Diverticulosis. 12. History of ovarian, cervical, head and neck, throat, tonsil cancer. 13. Status post paracentesis with 2450 mL. HISTORY: Patient has a history of all the cancers listed previously, ovarian, cervical, head, throat, neck, and tonsil. The head and neck cancer was in 2010 and the patient had chemo and radiation. At that time, lung and kidney lesions were noted. She has history of hypoxic respiratory failure with intubation, pneumonia, COPD, chronic back pain, osteoarthritis, methadone use, anxiety, hypothyroidism, diverticulitis, diverticulosis. In 2016, she had chemo for ovarian cancer. PAST SURGICAL HISTORY: Patient had a paracentesis in June of this year, which 4.5 L were removed, PEG placement, tubal ligation, history of 3 Port-A-Cath, total abdominal hysterectomy and bilateral salpingo-oophorectomy. HOSPITAL COURSE: A 67-year-old female, who presented to the ER with complaints of shortness of breath from the fluid in her stomach. She was recently at [facility] about 2 weeks ago with similar problems. Patient underwent paracentesis in which they pulled out 2450 mL of fluid. Oncology was consulted, but he did not come to the hospital. Pulmonology was also consulted, but had no input besides continuing bronchodilators. On admission, CT of the abdomen showed development of pldrmlmf-et-vdoyr ascites, mild contour abnormality/nodularity of the anterior hepatic surface. Chest x-ray showed no acute thoracic abnormality. Blood cultures were done, which were negative. Urine cultures were negative times 48 hours. Gram stain and culture of the peritoneal fluid showed moderate WBC, no organism seen and no growth after 4 days. Patient was also hyponatremic during hospital stay. She was put on a fluid restriction. At time of discharge, her sodium was 130. She was asymptomatic. Patient was given 2-g salt tab prior to discharge. Potassium of 3.7, creatinine of 0.51, BUN of 8, total bilirubin of less than 0.3, AST of 11, ALT of less than 5, ALP 46. WBC of 3.39, hemoglobin of 9.8 and stable, hematocrit of 30.2. Patient had 2 blood transfusions after her hemoglobin was found to be 7.7. The fecal occult blood test was negative. Patient's hemoglobin was stable for 2 days prior to discharge. Patient was sent home and was to follow up with oncology and GI as needed. Patient will have plenty of family support at home. Dictated By: Radha Burton NP JAMES CLEMENS MD Job#: [id number]
== END 2017-07-25 12:12 | disposition home or self-care (01) | DRG 755 ==
LOC: ER 14:11 → ERHOLD 19:30 → MED/SURG2 21:17
PROVIDERS: ADMIT Internal Medicine; ATTEND Internal Medicine
PROC: 0W9G3ZX Drainage of Peritoneal Cavity, Percutaneous Approach, Diagnostic (ICD-10-PCS; 2017-07-21)
PROC: 30243N1 Transfusion of Nonautologous Red Blood Cells into Central Vein, Percutaneous Approach (ICD-10-PCS; principal; 2017-07-23)
DX: C56.9 Malignant neoplasm of unspecified ovary (principal); R18.0 Malignant ascites; R64 Cachexia; E87.1 Hypo-osmolality and hyponatremia; E44.0 Moderate protein-calorie malnutrition; R09.02 Hypoxemia; J44.9 Chronic obstructive pulmonary disease, unspecified; K57.90 Diverticulosis of intestine, part unspecified, without perforation or abscess without bleeding; G89.29 Other chronic pain; F17.210 Nicotine dependence, cigarettes, uncomplicated; Z85.41 Personal history of malignant neoplasm of cervix uteri; Z85.21 Personal history of malignant neoplasm of larynx; Z85.831 Personal history of malignant neoplasm of soft tissue; M85.80 Other specified disorders of bone density and structure, unspecified site; E83.42 Hypomagnesemia; Z93.1 Gastrostomy status; M19.90 Unspecified osteoarthritis, unspecified site; E03.9 Hypothyroidism, unspecified; Z79.891 Long term (current) use of opiate analgesic; R68.2 Dry mouth, unspecified; Z68.21 Body mass index [BMI] 21.0-21.9, adult
CPT/HCPCS: 36415; 36430; 49083; 71045; 74176; 74470; 80048; 80053; 81001; 82270; 82550; 82553; 83605; 83735; 83880; 84100; 84157; 84484; 85014; 85018; 85025; 85384; 85610; 85730; 86850; 86900; 86920; 87040; 87070; 87086; 87205; 89051; 93005; 94640; 99284; J1170; J1200; J1956; J2405; J7030; J7050; P9016